=== PATIENT | male | born 1975 | race Caucasian/White ===

== ENCOUNTER 2020-11-10 20:28 | Outpatient (REF) | payer MEDICARE, BC, SELFPAY ==
[2020-11-13 00:11] LABS: COVID-19 RT-PCR Result NEGATIVE (Negative)
== END 2020-11-10 20:48 ==
LOC: NCHCN 20:28
PROVIDERS: PCP Nurse Practitioner Family; Visit Provider Nurse Practitioner Family
DX: R50.9 Fever, unspecified (principal)
CPT/HCPCS: U0003

== ENCOUNTER 2021-01-07 18:29 | Outpatient (REF) | payer MEDICARE, BC, SELFPAY | END 2021-01-07 18:30 | disposition home or self-care (01) | LOC: NCHCN 18:29 | PROVIDERS: PCP Nurse Practitioner Family; Visit Provider Nurse Practitioner Community Health | DX: L03.031 Cellulitis of right toe (principal) | CPT/HCPCS: 87077; 87070; 87186; 87205 ==

== ENCOUNTER 2021-01-22 16:01 | Outpatient (REF) | payer MEDICARE, BC, SELFPAY ==
[2021-01-22 20:51] LABS: Abs Immature Grans 0.02 10^3/uL (0.0-0.06); Absolute Basophil Count 0.07 10^3/uL (0.0-0.2); Absolute Eosinophil Count 0.05 10^3/uL (0.0-0.7); Absolute Lymphocyte Count 1.62 10^3/uL (1.2-3.4); Absolute Monocyte Count 0.62 10^3/uL (0.1-0.8); Absolute Neutrophil Count 4.58 10^3/uL (1.2-6.7); Eosinophils % 0.7; HCT 37.7 % (40.0-50.0); HGB 12.4 g/dL (13.5-17.5); Immature Grans % 0.3; Lymphocytes % 23.3; MCH 29.7 pg (27.0-33.0); MCHC 32.9 % (32.0-36.0); MCV 90.2 fL (80-95); MPV 10.8 fL (8.0-11.0); Monocytes % 8.9; Neutrophils % 65.8; Nucleated RBC 0 %; Platelet Count 203 10^3/uL (130-400); RBC 4.18 10^6/uL (4.36-5.78); RDW 14.8 % (11.8-14.1); RDW-SD 49.1 fL; WBC 6.96 10^3/uL (4.4-10.8)
[2021-01-22 21:13] LABS: ALT 50 U/L (16-63); AST 46 U/L (15-37); Albumin 4.7 g/dL (3.4-5.0); Alkaline Phosphatase 53 U/L (46-116); Anion Gap 17.7 mmol/L (3-11); BUN 11 mg/dL (7-18); Bilirubin, Total 0.3 mg/dL (0.2-1.0); CO2 21.3 mmol/L (21.0-32.0); CREATININE 0.7 mg/dL (0.70-1.30); Calcium 9.4 mg/dL (8.5-10.1); Calculated LDL 190 mg/dL (<100); Chloride 103 mmol/L (98-107); Cholesterol 279 mg/dL (<200); Glucose 72 mg/dL (74-106); HDL Cholesterol 61 mg/dL (40-60); Potassium 3.6 mmol/L (3.5-5.1); Sodium 142 mmol/L (136-145); TSH (W/Ref FT4) 0.82 uIU/mL (0.36-3.74); Total Protein 7.8 g/dL (6.4-8.2); Triglyceride 144 mg/dL (<150)
== END 2021-01-22 16:02 | disposition home or self-care (01) ==
LOC: NCHCN 16:01
PROVIDERS: PCP Nurse Practitioner Family; Visit Provider Internal Medicine
DX: R00.2 Palpitations (principal); R06.09 Other forms of dyspnea; R03.0 Elevated blood-pressure reading, without diagnosis of hypertension; R79.89 Other specified abnormal findings of blood chemistry
CPT/HCPCS: 80053; 80061; 84443; 85025

== ENCOUNTER 2021-06-29 19:46 | Outpatient (REF) | payer MEDICARE, BC, SELFPAY ==
[2021-06-29 21:21] LABS: Abs Immature Grans 0.01 10^3/uL (0.0-0.06); Absolute Basophil Count 0.09 10^3/uL (0.0-0.2); Absolute Eosinophil Count 0.05 10^3/uL (0.0-0.7); Absolute Lymphocyte Count 2.15 10^3/uL (1.2-3.4); Absolute Monocyte Count 0.48 10^3/uL (0.1-0.8); Absolute Neutrophil Count 2.81 10^3/uL (1.2-6.7); Basophils % 1.6; Eosinophils % 0.9; HCT 37.6 % (40.0-50.0); HGB 12.2 g/dL (13.5-17.5); Immature Grans % 0.2; Lymphocytes % 38.5; MCH 29.8 pg (27.0-33.0); MCHC 32.4 % (32.0-36.0); MCV 91.7 fL (80-95); MPV 9.9 fL (8.0-11.0); Monocytes % 8.6; Neutrophils % 50.2; Nucleated RBC 0 %; Platelet Count 359 10^3/uL (130-400); RDW 14.7 % (11.8-14.1); WBC 5.59 10^3/uL (4.4-10.8)
== END 2021-06-29 19:47 | disposition home or self-care (01) ==
LOC: NCHCN 19:46
PROVIDERS: PCP Nurse Practitioner Family; Visit Provider Nurse Practitioner Community Health
DX: D72.819 Decreased white blood cell count, unspecified (principal)
CPT/HCPCS: 85025

== ENCOUNTER 2022-01-07 16:27 | Outpatient (REF) | payer MEDICARE, BC, SELFPAY ==
[2022-01-07 21:25] LABS: HCT 38.8 % (40.0-50.0); HGB 12.8 g/dL (13.5-17.5); MCH 32.2 pg (27.0-33.0); MCV 97.5 fL (80-95); MPV 10.7 fL (8.0-11.0); Platelet Count 167 10^3/uL (130-400); RBC 3.98 10^6/uL (4.36-5.78); RDW-SD 50.6 fL; WBC 4.12 10^3/uL (4.4-10.8)
[2022-01-07 21:42] LABS: ALT 151 U/L (16-63); AST 224 U/L (15-37); Albumin 4.4 g/dL (3.4-5.0); Alkaline Phosphatase 83 U/L (46-116); Anion Gap 11.8 mmol/L (3-11); BUN 7 mg/dL (7-18); Bilirubin, Total 0.4 mg/dL (0.2-1.0); CO2 28.2 mmol/L (21.0-32.0); CREATININE 0.6 mg/dL (0.70-1.30); Calcium 9.3 mg/dL (8.5-10.1); Calculated LDL 185 mg/dL (<100); Chloride 101 mmol/L (98-107); Cholesterol 300 mg/dL (<200); Glucose 84 mg/dL (74-106); HDL Cholesterol 90 mg/dL (40-60); Sodium 141 mmol/L (136-145); Total Protein 7.9 g/dL (6.4-8.2); Triglyceride 127 mg/dL (<150)
== END 2022-01-07 16:28 | disposition home or self-care (01) ==
LOC: NCHCN 16:27
PROVIDERS: PCP Nurse Practitioner Family; Visit Provider Registered Nurse
DX: Z13.220 Encounter for screening for lipoid disorders (principal); F10.10 Alcohol abuse, uncomplicated; D64.9 Anemia, unspecified
CPT/HCPCS: 80053; 80061; 85027

== ENCOUNTER 2022-02-09 14:47 | Outpatient (REF) | payer MEDICARE, SELFPAY ==
[2022-02-09 22:05] LABS: Abs Immature Grans 0.01 10^3/uL (0.0-0.06); Absolute Basophil Count 0.05 10^3/uL (0.0-0.2); Absolute Eosinophil Count 0.03 10^3/uL (0.0-0.7); Absolute Lymphocyte Count 0.87 10^3/uL (1.2-3.4); Absolute Monocyte Count 0.58 10^3/uL (0.1-0.8); Basophils % 1.2; Eosinophils % 0.7; HCT 37.7 % (40.0-50.0); HGB 12.3 g/dL (13.5-17.5); Immature Grans % 0.2; Lymphocytes % 21.5; MCHC 32.6 % (32.0-36.0); MCV 98.2 fL (80-95); MPV 10.4 fL (8.0-11.0); Monocytes % 14.3; Neutrophils % 62.1; Nucleated RBC 0 %; Platelet Count 180 10^3/uL (130-400); RBC 3.84 10^6/uL (4.36-5.78); RDW 12.5 % (11.8-14.1); RDW-SD 45.2 fL; WBC 4.05 10^3/uL (4.4-10.8)
[2022-02-09 22:08] LABS: Absolute Neutrophil Count 2.52 10^3/uL (1.2-6.7)
[2022-02-09 22:14] LABS: Prothrombin Time 9.9 sec (9.3-11.0)
[2022-02-09 22:43] LABS: ALT 88 U/L (16-63); AST 77 U/L (15-37); Albumin 4.6 g/dL (3.4-5.0); Alkaline Phosphatase 76 U/L (46-116); Anion Gap 12.7 mmol/L (3-11); BUN 11 mg/dL (7-18); Bilirubin, Total 0.7 mg/dL (0.2-1.0); CO2 25.3 mmol/L (21.0-32.0); CREATININE 0.6 mg/dL (0.70-1.30); Calcium 9.1 mg/dL (8.5-10.1); Chloride 98 mmol/L (98-107); Folate 15.2 ng/mL (8.6-20.0); Glucose 91 mg/dL (74-106); Potassium 3.6 mmol/L (3.5-5.1); Sodium 136 mmol/L (136-145); Total Protein 7.6 g/dL (6.4-8.2); Vitamin B12 287 pg/mL (193-986)
[2022-02-11 08:47] LABS: HBs Antibody, Quant >1000.0 mIU/mL (See Note); Hepatitis B Surface Ab Positive (See Note)
[2022-02-11 09:55] LABS: Hepatitis A Antibody IgM Negative (Negative); Hepatitis B Core Antibody Negative (Negative); Hepatitis B surface Ag Negative (Negative); Hepatitis C Ab w Rflx HCV PCR Negative (Negative)
[2022-02-13 14:14] LABS: Thiamine (Vitamin B1), WB 96 nmol/L (70-180)
== END 2022-02-09 14:48 | disposition home or self-care (01) ==
LOC: NCHCN 14:47
PROVIDERS: PCP Nurse Practitioner Family; Visit Provider Registered Nurse
DX: R74.8 Abnormal levels of other serum enzymes (principal)
CPT/HCPCS: 80053; 86704; 86706; 86709; 86803; 87340; 82607; 82746; 84425; 85025; 85610

== ENCOUNTER 2022-04-27 18:47 | Outpatient (REF) | payer MEDICARE, SELFPAY ==
[2022-04-27 14:40] LABS: HCT 40.4 % (40.0-50.0); HGB 13.7 g/dL (13.5-17.5); MCH 32.7 pg (27.0-33.0); MCHC 33.9 % (32.0-36.0); MCV 96 fL (80-95); MPV 10.4 fL (8.0-11.0); Platelet Count 230 10^3/uL (130-400); RBC 4.19 10^6/uL (4.36-5.78); RDW 12.2 % (11.8-14.1); RDW-SD 42.9 fL; WBC 4.23 10^3/uL (4.4-10.8)
[2022-04-27 14:50] LABS: INR 0.9 (0.9-1.1)
[2022-04-27 15:31] LABS: ALT 189 U/L (16-63); AST 196 U/L (15-37); Albumin 4.5 g/dL (3.4-5.0); Alkaline Phosphatase 79 U/L (46-116); Anion Gap 14.6 mmol/L (3-11); BUN 10 mg/dL (7-18); Bilirubin, Total 0.8 mg/dL (0.2-1.0); CO2 23.4 mmol/L (21.0-32.0); CREATININE 0.5 mg/dL (0.70-1.30); Calcium 9.5 mg/dL (8.5-10.1); Chloride 97 mmol/L (98-107); Glucose 87 mg/dL (74-106); Potassium 4.1 mmol/L (3.5-5.1); Sodium 135 mmol/L (136-145); TSH 0.64 uIU/mL (0.36-3.74); Total Protein 7.8 g/dL (6.4-8.2)
== END 2022-04-27 18:48 | disposition home or self-care (01) ==
LOC: NCHCN 18:47
PROVIDERS: PCP Nurse Practitioner Family; Visit Provider Nurse Practitioner Family
DX: D64.9 Anemia, unspecified (principal); F10.10 Alcohol abuse, uncomplicated; Z13.29 Encounter for screening for other suspected endocrine disorder
CPT/HCPCS: 80053; 85027; 84443; 85610

== ENCOUNTER 2022-10-22 13:03 | Outpatient (REF) | payer MEDICARE, SELFPAY ==
[2022-10-22 15:37] LABS: Abs Immature Grans 0.02 10^3/uL (0.0-0.06); Absolute Basophil Count 0.04 10^3/uL (0.0-0.2); Absolute Eosinophil Count 0.09 10^3/uL (0.0-0.7); Absolute Monocyte Count 0.76 10^3/uL (0.1-0.8); Absolute Neutrophil Count 3.38 10^3/uL (1.2-6.7); Basophils % 0.7; Eosinophils % 1.7; HCT 40.5 % (40.0-50.0); HGB 13.7 g/dL (13.5-17.5); Immature Grans % 0.4; Lymphocytes % 20.4; MCH 31.6 pg (27.0-33.0); MCHC 33.8 % (32.0-36.0); MCV 93 fL (80-95); MPV 10.2 fL (8.0-11.0); Monocytes % 14.1; Neutrophils % 62.7; Platelet Count 192 10^3/uL (130-400); RBC 4.34 10^6/uL (4.36-5.78); RDW 11.8 % (11.8-14.1); RDW-SD 40.1 fL; WBC 5.39 10^3/uL (4.4-10.8)
[2022-10-22 16:23] LABS: Hemoglobin A1C 5.1 % (<5.7)
[2022-10-22 16:36] LABS: ALT 131 U/L (16-63); AST 145 U/L (15-37); Albumin 4.7 g/dL (3.4-5.0); Alkaline Phosphatase 81 U/L (46-116); Anion Gap 10.5 mmol/L (3-11); BUN 19 mg/dL (7-18); Bilirubin, Total 0.5 mg/dL (0.2-1.0); CO2 28.5 mmol/L (21.0-32.0); CREATININE 0.7 mg/dL (0.70-1.30); Calcium 9.4 mg/dL (8.5-10.1); Calculated LDL 186 mg/dL (<100); Chloride 101 mmol/L (98-107); Cholesterol 300 mg/dL (<200); Estimated GFR 112.95 (mL/min/1.73m2); Glucose 95 mg/dL (74-106); HDL Cholesterol 96 mg/dL (40-60); Potassium 3.8 mmol/L (3.5-5.1); Sodium 140 mmol/L (136-145); Total Protein 8.6 g/dL (6.4-8.2); Triglyceride 92 mg/dL (<150)
== END 2022-10-22 13:04 | disposition home or self-care (01) ==
LOC: NCHCN 13:03
PROVIDERS: PCP Nurse Practitioner Family; Visit Provider Family Medicine
DX: K76.0 Fatty (change of) liver, not elsewhere classified (principal); Z91.51 Personal history of suicidal behavior; D64.9 Anemia, unspecified; D72.819 Decreased white blood cell count, unspecified; Z00.00 Encounter for general adult medical examination without abnormal findings
CPT/HCPCS: 80053; 80061; 82670; 83036; 85025

== ENCOUNTER 2023-03-31 16:41 | Outpatient (REF) | payer MEDICARE, SELFPAY ==
[2023-03-31 15:29] LABS: ALT 125 U/L (16-63); AST 132 U/L (15-37); Albumin 4.5 g/dL (3.4-5.0); Alkaline Phosphatase 55 U/L (46-116); Anion Gap 11.8 mmol/L (3-11); BUN 10 mg/dL (7-18); Bilirubin, Total 0.6 mg/dL (0.2-1.0); CO2 23.2 mmol/L (21.0-32.0); CREATININE 0.5 mg/dL (0.70-1.30); Calcium 9.7 mg/dL (8.5-10.1); Chloride 104 mmol/L (98-107); Estimated GFR 125.03 (mL/min/1.73m2); Glucose 102 mg/dL (74-106); Hemoglobin A1C 5.1 % (<5.7); Potassium 3.8 mmol/L (3.5-5.1); Sodium 139 mmol/L (136-145); Total Protein 8.1 g/dL (6.4-8.2)
== END 2023-03-31 16:42 | disposition home or self-care (01) ==
LOC: NCHCN 16:41
PROVIDERS: PCP Nurse Practitioner Family; Visit Provider Family Medicine
DX: R79.89 Other specified abnormal findings of blood chemistry (principal); F10.10 Alcohol abuse, uncomplicated
CPT/HCPCS: 80053; 83036

== ENCOUNTER 2024-06-14 12:50 | Outpatient (REF) | payer MEDICARE, SELFPAY ==
[2024-06-14 15:01] LABS: Abs Immature Grans 0.03 10^3/uL (0.0-0.06); Absolute Basophil Count 0.13 10^3/uL (0.0-0.2); Absolute Eosinophil Count 0.21 10^3/uL (0.0-0.7); Absolute Lymphocyte Count 1.55 10^3/uL (1.2-3.4); Absolute Monocyte Count 0.67 10^3/uL (0.1-0.8); Absolute Neutrophil Count 6.99 10^3/uL (1.2-6.7); Basophils % 1.4 %; Eosinophils % 2.2 %; HCT 38.2 % (40.0-50.0); HGB 13.1 g/dL (13.5-17.5); Immature Grans % 0.3 %; Lymphocytes % 16.2 %; MCHC 34.3 % (32.0-36.0); MCV 93 fL (80-95); Neutrophils % 72.9 %; RBC 4.09 10^6/uL (4.36-5.78); RDW 12.3 % (11.8-14.1); RDW-SD 42.7 fL; WBC 9.58 10^3/uL (4.4-10.8)
[2024-06-14 15:16] LABS: ALT 182 U/L (16-63); AST 242 U/L (15-37); Albumin 4.7 g/dL (3.4-5.0); Alkaline Phosphatase 68 U/L (46-116); Anion Gap 16.8 mmol/L (3-11); BUN 19 mg/dL (7-18); Bilirubin, Total 1.01 mg/dL (0.2-1.0); CO2 24.2 mmol/L (21.0-32.0); CREATININE 0.7 mg/dL (0.70-1.30); Calcium 9.6 mg/dL (8.5-10.1); Chloride 99 mmol/L (98-107); Estimated GFR 112.25 (mL/min/1.73m2); Glucose 93 mg/dL (74-106); Potassium 3.7 mmol/L (3.5-5.1); Sodium 140 mmol/L (136-145)
[2024-06-14 15:29] LABS: Diff Comment PLT Morph Reviewed; RBC Morphology Normal
[2024-06-14 23:48] LABS: HIV-1/2 Ag & Ab Screen Negative (Negative); Hepatitis C Ab w Rflx HCV PCR Negative (Negative)
[2024-06-15 13:36] LABS: Syphilis Serology (RPR) Negative (Negative)
== END 2024-06-14 12:51 | disposition home or self-care (01) ==
LOC: NCHCN 12:50
PROVIDERS: PCP Nurse Practitioner Family; Visit Provider Family Medicine
DX: Z01.818 Encounter for other preprocedural examination (principal)
CPT/HCPCS: 80053; 86803; 87389; 85025; 86592

== ENCOUNTER 2024-09-17 13:21 | Outpatient (REF) | payer MEDICARE, SELFPAY ==
[2024-09-18 09:06] LABS: HIV-1/2 Ag & Ab Screen Negative (Negative)
[2024-09-18 09:09] LABS: Hepatitis C Ab w Rflx HCV PCR Negative (Negative)
[2024-09-18 10:56] LABS: Syphilis Serology (RPR) Negative (Negative)
[2024-09-18 12:01] LABS: Chlamydia Result Negative (Negative); GC Result Negative (Negative)
== END 2024-09-17 13:22 | disposition home or self-care (01) ==
LOC: NCHCN 13:21
PROVIDERS: PCP Nurse Practitioner Family; Visit Provider Family Medicine
DX: Z11.3 Encounter for screening for infections with a predominantly sexual mode of transmission (principal); Z12.4 Encounter for screening for malignant neoplasm of cervix
CPT/HCPCS: 86803; 87389; 87491; 87591; 86592